=== PATIENT | male | born 1960 | race Caucasian/White ===

== ENCOUNTER 2017-03-17 15:35 | Emergency (ER) | payer BC ==
[2017-03-17 15:42] VITALS: BMI 26.6
[2017-03-17] MEDS ORDERED: ZOFRAN INJ 4 MG VIAL IM ONE (16:12)
--- NOTE | 2017-03-17 16:13 | DR.GENAD ---
HPI - PCP Primary Care Physician: JOE - HPI Comment HPI Comment: WAS AT GI OFFICE WHEN HE STARTED SWEATING AND SHAKING AND HAD NEAR SYNCOPAL FEELING. HE WAD HAVING ABDOMINA DISCOMFORT WITH NAUSEA. HE HAD GASTRIC SLEEVE SURGERY FEW YEARS ADO. HE IS EATING POORLY. WHEN TRY TO EAT, IT COME BACK. THIS IS UPSETTING. HE IS WEAK AND CONSTANTLY DRAIN OF ENERGY. SYMTOMS SPONTANEOUSLY IMPROVE WHILE IN ED. - Complaint/Symptoms Chief Complaint Doctors Comments: ABDOMINAL PAIN WITH NAUSEA, NEAR SYNCPAL EPISODE. Chief Complaint:: BEEN TO IN [place], WHILE LEAVING PATIENT STARTED SWEATING REALLY BAD, SHAKING AND HE PASSED OUT. Self Treatment fo Chief Complaint: CAME STRAHT TO ER - Nurses notes reviewed Nurses Notes Review: Yes - Source History Provided: Patient, Guardian - Mode of Arrival Mode of Arrival: Wheelchair - Timing Onset of Chief Complaint: 03/17/17 Came on: Suddenly - Duration Duration: Constant Duration: Hours - Severity Severity: Moderate PMH - PMH Past Medical History: Yes Past Medical History: Hypertension Past Surgical History: Yes Surgical History: Other Past Surgical History Comment: HERNIA AND GASTRIC BYPASS IN 2014 - Family History History of Family Medical Conditions: Yes Family Medical History: Cancer, Hypertension - Social History Does any household member use tobacco: No Alcohol Use: None Do you use any recreational Drugs:: No Lives With: Alone Lives Where: Home - infectious screening In the last 2 months have you had wt loss of >10#?: NO Have you had fever, night sweats or hemotysis?: No Have you traveled outside the country in the last 6 months?: No Isolation: Standard ROS - Review of Systems Constitutional: No Symptoms Reported Eyes: No Symptoms Reported ENTM: No Symptoms Reported Respiratoy: No Symptoms Reported Cardiovascular: No Symptoms Reported Gastrointestinal/Abdominal: Abdominal Pain, Nausea Genitourinary: No Symptoms Reported. negative: Dysuria, Frequency, Hematuria Neurological: Dizziness Musculoskeletal: Muscle Pain Integumentary: No Symptoms Reported Hematologic/Lymphatic: No Symptoms Reported Endocrine: No Symptoms Reported All Other Systems: Reviewed and Negative PE - Vital Signs Vitals: Temperature 97.7 F Pulse Rate [Left Brachial] 78 Pulse Rate 80 Respiratory Rate 16 Blood Pressure [Left Arm] 160/101 Blood Pressure 180/111 O2 Sat by Pulse Oximetry 100 - General Limitations: No Limitations General Appearance: Alert - Head Head Exam: Normal Inspection - Eyes Eye exam: Normal Appearance - ENT ENT Exam: Normal External Ear Exam TM/Canal Exam: Bilateral Normal Nose Exam: Normal Nose Exam Mouth Exam: Normal Inspection Throat Exam: Normal Inspection - Neck Neck Exam: Normal Inspection - Chest Chest Inspection: Symmetric Chest Wall Rise - Respiratory Respiratory Exam: Normal Lung Sounds Bilat Respiratory Exam: Bilateral Clear to Auscultation - Cardiovascular Cardiovascular Exam: Regular Rate, Normal Rhythm, Normal Heart Sounds - Abdominal Exam Abdominal Exam: Normal Bowel Sounds, Soft, Tenderness Abdominal Tenderness: RUQ, LUQ, Epigastrium - Extremities Extremities Exam: Normal Inspection - Back Back Exam: Normal Inspection - Neurologic Neurological Exam: Alert, Oriented X3 - Psychiatric Psychiatric Exam: Anxious - Skin Skin Exam: Normal Color MDM - Additional Information Additional Information Obtained From: Family - Differential Diagnosis Differential Diagnosis: ABDOMINAL PAIN, KISNEY STONES, UTI, BOWEL OBSTRUCTION, DIZZINESS Course - Treatment Treatment: SEE ORDERS. - Education/Counseling Education/Counseling: Patient, Family, Education Educated On: Diagnosis, Needs for Follow Up ROR - Labs Reviewed Laboratory Results Reviewed?: Yes Result Diagrams: 03/17/17 16:54 03/17/17 16:54 Laboratory: WBC 8.0 X10^3/uL (3.6-10.0) 03/17/17 16:54 RBC 5.19 X10^6/uL (4.7-6.0) 03/17/17 16:54 Hgb 16.5 g/dL (13.5-18.0) 03/17/17 16:54 Hct 48.5 % (42.0-54.0) 03/17/17 16:54 MCV 93.4 fL (80.0-100.0) 03/17/17 16:54 MCH 31.7 pg (27.0-34.0) 03/17/17 16:54 MCHC 33.9 g/dL (33.0-35.0) 03/17/17 16:54 RDW 13.4 % (11.6-16.5) 03/17/17 16:54 Plt Count 221 X10^3/uL (150.0-450.0) 03/17/17 16:54 MPV 7.7 fL (7.4-11.0) 03/17/17 16:54 Neut % 64.4 % (42.0-75.0) 03/17/17 16:54 Lymph % 23.5 % (21.0-51.0) 03/17/17 16:54 Swain % 9.1 % (0.0-13.0) 03/17/17 16:54 Eos % 2.0 % (0.9-2.9) 03/17/17 16:54 Baso % 1.0 % (0.2-1.0) 03/17/17 16:54 Neut # 5.2 x10^3/uL (2.2-4.8) H 03/17/17 16:54 Lymph # 1.9 X10^3/uL (1.3-2.9) 03/17/17 16:54 Swain # 0.7 x10^3/uL (0.3-0.8) 03/17/17 16:54 Eos # 0.2 x10^3/uL (0.0-0.2) 03/17/17 16:54 Baso # 0.1 X10^3/uL (0.0-0.1) 03/17/17 16:54 Absolute Nucleated RBC 0.0 /100WBC 03/17/17 16:54 Sodium 141 mmol/L (136-145) 03/17/17 16:54 Corrected Sodium TNP 03/17/17 16:54 Potassium 3.7 mmol/L (3.5-5.1) 03/17/17 16:54 Chloride 106 mmol/L (98-107) 03/17/17 16:54 Carbon Dioxide 31.5 mmol/L (21-32) 03/17/17 16:54 BUN 9 mg/dL (7-18) 03/17/17 16:54 Creatinine 1.00 mg/dL (0.70-1.30) 03/17/17 16:54 Est GFR (MDRD) Af Amer > 60 (>60) 03/17/17 16:54 Est GFR (MDRD) Non-Af > 60 (>60) 03/17/17 16:54 Glucose 85 mg/dL (65-99) 03/17/17 16:54 Calcium 8.6 mg/dL (8.5-10.1) 03/17/17 16:54 Corrected Calcium 9.2 mg/dL (8.5-10.1) 03/17/17 16:54 Total Bilirubin 0.20 mg/dL (0.2-1.0) 03/17/17 16:54 AST 16 Units/L (15-37) 03/17/17 16:54 ALT 25 Units/L (12-78) 03/17/17 16:54 Alkaline Phosphatase 76 Units/L (46-116) 03/17/17 16:54 Total Protein 6.8 g/dL (6.4-8.2) 03/17/17 16:54 Albumin 3.2 g/dL (3.4-5.0) L 03/17/17 16:54 Globulin 3.6 g/dL (2.5-4.5) 03/17/17 16:54 Albumin/Globulin Ratio 0.9 Ratio (1.1-2.1) L 03/17/17 16:54 Amylase 64 Units/L (25-115) 03/17/17 16:54 Lipase 101 Units/L (73-393) 03/17/17 16:54 - XRAY XRAY Interpreted by: Radiologist XRAY Findings: REPORT DISCUSS WITH PATIENT AND HIS FAMILY. - Diagnosis Discharge Problem: Dizziness Vomiting Qualifiers: Vomiting type: bilious vomiting Nausea presence: with nausea Qualified Code(s) : R11.14 - Bilious vomiting - Discharge Plan Disposition: 01 HOME, SELF-CARE Condition: Stable Prescriptions: Ondansetron HCl [Zofran Tab 4 mg] 4 mg PO Q8H PRN #12 tab PRN Reason: Nausea/Vomiting - Follow ups/Referrals Follow ups/Referrals: Alfred Jules [Primary Care Provider] - 3 days - Instructions Instructions: Nausea and Vomiting, Adult, [id number], Headache and Arthritis Additional Instructions: RETURN TO ED IF WORSE.
[2017-03-17 17:09] LABS: BASOPHILS # (AUTO) 0.1 X10^3/uL (0.0-0.1); EOSINOPHILS # (AUTO) 0.2 x10^3/uL (0.0-0.2); HEMATOCRIT 48.5 % (42.0-54.0); HEMOGLOBIN 16.5 g/dL (13.5-18.0); LYMPHOCYTES # (AUTO) 1.9 X10^3/uL (1.3-2.9); LYMPHOCYTES % (AUTO) 23.5 % (21.0-51.0); MEAN CORPUSCULAR HEMOGLOBIN 31.7 pg (27.0-34.0); MEAN CORPUSCULAR HGB CONC 33.9 g/dL (33.0-35.0); MEAN CORPUSCULAR VOLUME 93.4 fL (80.0-100.0); MEAN PLATELET VOLUME 7.7 fL (7.4-11.0); MONOCYTES # (AUTO) 0.7 x10^3/uL (0.3-0.8); MONOCYTES % (AUTO) 9.1 % (0.0-13.0); NEUTROPHILS # (AUTO) 5.2 x10^3/uL (2.2-4.8); NEUTROPHILS % (AUTO) 64.4 % (42.0-75.0); PLATELET COUNT 221 X10^3/uL (150.0-450.0); RED BLOOD COUNT 5.19 X10^6/uL (4.7-6.0); RED CELL DISTRIBUTION WIDTH 13.4 % (11.6-16.5)
[2017-03-17 17:18] LABS: ALANINE AMINOTRANSFERASE 25 Units/L (12-78); ALBUMIN 3.2 g/dL (3.4-5.0); ALKALINE PHOSPHATASE 76 Units/L (46-116); AMYLASE 64 Units/L (25-115); ASPARTATE AMINO TRANSFERASE 16 Units/L (15-37); BLOOD UREA NITROGEN 9 mg/dL (7-18); CALCIUM 8.6 mg/dL (8.5-10.1); CARBON DIOXIDE 31.5 mmol/L (21-32); CHLORIDE 106 mmol/L (98-107); COR CA(FOR HYPOALB) 9.2 mg/dL (8.5-10.1); LIPASE 101 Units/L (73-393); SODIUM 141 mmol/L (136-145); TOTAL PROTEIN 6.8 g/dL (6.4-8.2); eGFR BLACK RACES > 60 (>60); eGFR NON BLACK RACES > 60 (>60)
[2017-03-17] MEDS ORDERED: ZOFRAN INJ 4 MG VIAL ONE (18:28)
[2017-03-17 18:35] VITALS: BP 160/101
--- NOTE | 2017-03-17 19:33 | CT ---
CT HEAD WITHOUT CONTRAST CLINICAL HISTORY: 56-year-old male with headache, vomiting and nausea. COMPARISON: None. TECHNIQUE: Multiple, non-contrasted axial CT images were obtained from the skull base to the cranial vertex. Coronal and sagittal reformats were performed. FINDINGS: There are no abnormal intra- or extra-axial fluid collections, midline shift, or mass effec t. Henriquez-white differentiation is normal. Partially empty sella. Global cortical involutional changes are present that are advanced for the patient's stated age. The ventricular system is mildly enlarged but commensurate with the degree of sulcal prominence. Periventricular and supraventricular white ma tter hypodensity is present that is nonspecific in appearance, but most likely to represent microvasc ular ischemic changes. Atherosclerotic vascular calcification is present within the carotid siphons. Polypoid mucosal thickening within the maxillary sinuses, remaining imaged paranasal sinuses, mastoid air cells and tympanic cavities are clear. IMPRESSION: 1. No definite evidence of an acute intracranial process. If clinical concern persists, consider MRI/ MRA brain. 2. Moderate microvascular white matter ischemic changes, with associated volume loss. 3. Pattern of mucosal thickening within the maxillary sinuses as described, correlate for sinusitis. Reported By:
--- NOTE | 2017-03-17 19:37 | RAD ---
ACUTE ABDOMINAL SERIES CLINICAL HISTORY: 56-year-old male with vomiting. COMPARISON: None. FINDINGS: PA chest radiograph demonstrates normal cardiopericardial silhouette. There is no focal consolidation , pleural effusion or pneumothorax. Pulmonary vascularity is normal. Abdominal radiographs demonstrate a nonobstructive bowel gas pattern. Gas and stool are seen througho ut the colon. There is no small bowel distention. There is no radiographic evidence of pneumoperitone um. Imaged osseous structures are intact. Soft tissues are unremarkable. IMPRESSION: 1. No acute cardiopulmonary process. 2. Nonobstructive bowel gas pattern without radiographic evidence of pneumoperitoneum. Reported By:
== END 2017-03-17 18:40 | disposition home or self-care (01) ==
LOC: ER 15:54
DX: R42 Dizziness and giddiness (principal); R11.14 Bilious vomiting
CPT/HCPCS: 36415; 70450; 74022; 80053; 82150; 83690; 85025; 96372; 99282; 99283; J2405

== ENCOUNTER 2017-04-02 12:04 | Day surgery (SDC) | payer BC ==
[2017-04-02] MEDS ORDERED: D5 LR 1000 ML 1,000 ML IV ONE (12:14)
[2017-04-02] MEDS ORDERED: DIPRIVAN VIAL 20 ML ONE (12:33)
[2017-04-02 13:17] VITALS: BP 134/86
== END 2017-04-02 13:15 | disposition home or self-care (01) ==
LOC: SURG1 12:04
PROVIDERS: ATTEND Internal Medicine Gastroenterology
PROC: 0DB88ZX Excision of Small Intestine, Via Natural or Artificial Opening Endoscopic, Diagnostic (ICD-10-PCS; principal; 2017-04-02 16:00)
PROC: 0DJ08ZZ Inspection of Upper Intestinal Tract, Via Natural or Artificial Opening Endoscopic (ICD-10-PCS; principal; 2017-04-02 16:00)
DX: R11.2 Nausea with vomiting, unspecified (principal); R10.13 Epigastric pain; Z98.84 Bariatric surgery status; K29.60 Other gastritis without bleeding; K20.8 Other esophagitis
CPT/HCPCS: A4217; J3490; J7120

== ENCOUNTER 2024-07-19 10:32 | Observation (INO) ==
--- NOTE | 2024-07-19 10:37 | EKG ---
Test Reason : high blood pressure Blood Pressure : */* mmHG Vent. Rate : 75 BPM Atrial Rate : 75 BPM P-R Int : 148 ms QRS Dur : 84 ms QT Int : 436 ms P-R-T Axes : 55 14 39 degrees QTc Int : 486 ms Normal sinus rhythm Prolonged QT Abnormal ECG No previous ECGs available Confirmed by Riley Sheikh MD ([id number]) on 07/19/2024 2:49:39 PM Referred By: Confirmed By: Riley Sheikh MD
[2024-07-19] MEDS: CATAPRES TAB 0.2 MG PO ONE (11:08)
[2024-07-19 11:16] LABS: INR 1.06 (0.8-1.3)
[2024-07-19 11:18] LABS: HEMOGLOBIN 14.4 g/dL (13.5-18.0); MEAN CORPUSCULAR HEMOGLOBIN 30.5 pg (27.0-34.0); MEAN CORPUSCULAR VOLUME 90.9 fL (80.0-100.0); WHITE BLOOD COUNT 8.6 X10^3/uL (3.6-10.0)
[2024-07-19 11:21] LABS: BASOPHILS % (AUTO) 0.6 % (0.2-1.0); EOSINOPHILS # (AUTO) 0.5 x10^3/uL (0.0-0.2); EOSINOPHILS % (AUTO) 5.3 % (0.9-2.9); HEMATOCRIT 42.9 % (42.0-54.0); LYMPHOCYTES # (AUTO) 1.5 X10^3/uL (1.3-2.9); LYMPHOCYTES % (AUTO) 17.3 % (21.0-51.0); MEAN CORPUSCULAR HGB CONC 33.6 g/dL (33.0-35.0); MEAN PLATELET VOLUME 7.7 fL (7.4-11.0); MONOCYTES # (AUTO) 0.9 x10^3/uL (0.3-0.8); MONOCYTES % (AUTO) 9.9 % (0.0-13.0); NEUTROPHILS # (AUTO) 5.8 x10^3/uL (2.2-4.8); NEUTROPHILS % (AUTO) 66.9 % (42.0-75.0); PLATELET COUNT 237 X10^3/uL (150.0-450.0); RED BLOOD COUNT 4.72 X10^6/uL (4.7-6.0); RED CELL DISTRIBUTION WIDTH 14.8 % (11.6-16.5)
[2024-07-19 11:27] LABS: ALANINE AMINOTRANSFERASE 28 Units/L (12-78); ALBUMIN 3.2 g/dL (3.4-5.0); ALKALINE PHOSPHATASE 90 Units/L (46-116); ASPARTATE AMINO TRANSFERASE 25 Units/L (15-37); BLOOD UREA NITROGEN 26 mg/dL (7-18); CALCIUM 8.6 mg/dL (8.5-10.1); CARBON DIOXIDE 30.6 mmol/L (21-32); CHLORIDE 106 mmol/L (98-107); COR CA(FOR HYPOALB) 9.2 mg/dL (8.5-10.1); CREATININE 1.19 mg/dL (0.70-1.30); GLUCOSE 89 mg/dL (65-99); MAGNESIUM 1.9 mg/dL (2.0-2.9); POTASSIUM 3.4 mmol/L (3.5-5.1); SODIUM 141 mmol/L (136-145); TOTAL PROTEIN 6.9 g/dL (6.4-8.2); eGFR NON BLACK RACES > 60 (>60)
--- NOTE | 2024-07-19 11:46 | RAD ---
EXAM:CHEST, 1 VIEWHISTORY:cough; GASTRIC SLEEVE, HERNIACOMPARISON:None.TECHNIQUE:Chest radiograph single frontal viewFINDINGS:Low lung volumes are demonstrated with streaky subsegmental bibasilar airspace opacities. Upper lung zones are clear. Heart size is average accounting for portable technique and inspiratory effort. There are no conspicuous pleural fluid collections identified by portable technique. No pneumothorax or acute osseous abnormalities of the chest. Paraspinal fusion hardware is demonstrated within the upper lumbar spine. The bone mineral density is generally diminished. Fullness of the right paratracheal soft tissue stripe likely due to superimposition of vascular structures.Small hiatal hernia is questioned.There is transposition of the colon below the right diaphragm.IMPRESSION:Low lung volumes with streaky subsegmental bibasilar opacities favoring atelectasis. Early pneumonia may be excluded on a clinical basis.Small hiatal hernia suspectedTHIS IS AN ELECTRONICALLY VERIFIED FINAL REPORT07/19/2024 11:43 AM - Electronically signed by Kwame Starkey MD
[2024-07-19] MEDS: CATAPRES TAB 0.1 MG PO ONE (11:52)
--- NOTE | 2024-07-19 12:13 | DR.HTN ---
HPI Time Seen Time Seen by Provider: 07/19/24 10:35 Primary Care Physician Primary Care Physician: NABIL Pires Complaints Chief Complaint Doctors Comments: 64 yo M, hx of HTN, non-compliant with BP meds, was at doctor's office for routine visit, was sent here for HTN, 238/160 in office. Pt admits to cough and dyspnea for ~1 mo. Also admits to a couple episodes of emesis in the past couple days. Denies other complaints. 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 (238/160) Hx of HTN but not compliant. 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 Patient poor historian and states he really don't know why he is here, but they said his BP was high. He c/o cough and dyspnea x 1 month COVID-19 Coronavirus risk:travel/contact w/high risk person: No Has patient experienced Coronavirus symptoms: No Source History Provided: Patient Mode of Arrival Mode of Arrival: Wheelchair Timing Onset of Chief Complaint: 07/19/24 PMH PMH Past Medical History: Yes Past Medical History: Hypertension Past Surgical History: Yes Surgical History: Ortho Surgery Past Surgical History Comment: gastric bypass Family History History of Family Medical Conditions: Yes Family Medical History: Cancer and Hypertension Social History Does patient currently use any type of tobacco product: Yes Have you used tobacco products in the last 12 months: Yes Type of Tobacco Use: Cigarettes Does any household member use tobacco: Yes Alcohol Use: None Do you use any recreational Drugs:: No Lives With: Alone Lives Where: Home Travel Risk Coronavirus risk:travel/contact w/high risk person: No Has patient experienced Coronavirus symptoms: No Infectious screening In the last 2 months have you had wt loss of >10#?: NO Have you had fever, night sweats or hemotysis?: No Have you traveled outside the country in the last 6 months?: No Isolation: Standard ROS Review of Systems Respiratoy: Productive Cough and Short of Breath Cardiovascular: negative Chest Pain or Palpitations All Other Systems: Reviewed and Negative PE Vital Signs Vitals: Vital Signs Temperature 98.2 F Pulse Rate 72 Respiratory Rate 16 Blood Pressure 184/103 O2 Sat by Pulse Oximetry 97 General Limitations: No Limitations General Appearance: Alert and In No Apparent Distress Head Head Exam: Normal Inspection Eyes Eye exam: Normal Appearance ENT ENT Exam: Normal Exam Neck Neck Exam: Normal Inspection Chest Chest Inspection: Normal Inspection Respiratory Respiratory Exam: Normal Lung Sounds Bilat Respiratory Exam: Bilateral: Clear to Auscultation Cardiovascular Cardiovascular Exam: Regular Rate and Normal Rhythm Abdominal Exam Abdominal Exam: Normal Inspection, Normal Bowel Sounds and Soft Extremities Extremities Exam: Normal Inspection Back Back Exam: Normal Inspection Neurologic Neurological Exam: Alert and Oriented X3 Psychiatric Psychiatric Exam: Normal Affect and Normal Mood Skin Skin Exam: Warm, Dry, Intact and Normal Color ROR Labs Reviewed 07/19/24 11:00 07/19/24 11:00 Laboratory: WBC 8.6 X10^3/uL (3.6-10.0) 07/19/24 11:00 RBC 4.72 X10^6/uL (4.7-6.0) 07/19/24 11:00 Hgb 14.4 g/dL (13.5-18.0) 07/19/24 11:00 Hct 42.9 % (42.0-54.0) 07/19/24 11:00 MCV 90.9 fL (80.0-100.0) 07/19/24 11:00 MCH 30.5 pg (27.0-34.0) 07/19/24 11:00 MCHC 33.6 g/dL (33.0-35.0) 07/19/24 11:00 RDW 14.8 % (11.6-16.5) 07/19/24 11:00 Plt Count 237 X10^3/uL (150.0-450.0) 07/19/24 11:00 MPV 7.7 fL (7.4-11.0) 07/19/24 11:00 Neut % (Auto) 66.9 % (42.0-75.0) 07/19/24 11:00 Lymph % (Auto) 17.3 % (21.0-51.0) L 07/19/24 11:00 Bertie % (Auto) 9.9 % (0.0-13.0) 07/19/24 11:00 Eos % (Auto) 5.3 % (0.9-2.9) H 07/19/24 11:00 Baso % (Auto) 0.6 % (0.2-1.0) 07/19/24 11:00 Neut # (Auto) 5.8 x10^3/uL (2.2-4.8) H 07/19/24 11:00 Lymph # (Auto) 1.5 X10^3/uL (1.3-2.9) 07/19/24 11:00 Bertie # (Auto) 0.9 x10^3/uL (0.3-0.8) H 07/19/24 11:00 Eos # (Auto) 0.5 x10^3/uL (0.0-0.2) H 07/19/24 11:00 Baso # (Auto) 0.0 X10^3/uL (0.0-0.1) 07/19/24 11:00 Absolute Nucleated RBC 0.1 /100WBC 07/19/24 11:00 PT 13.6 SECONDS (11.8-14.3) 07/19/24 11:00 INR Target Range - 07/19/24 11:00 INR 1.06 (0.8-1.3) 07/19/24 11:00 APTT 28.4 SECONDS (22.9-36.5) 07/19/24 11:00 PTT Comment - 07/19/24 11:00 Sodium 141 mmol/L (136-145) 07/19/24 11:00 Corrected Sodium TNP 07/19/24 11:00 Potassium 3.4 mmol/L (3.5-5.1) L 07/19/24 11:00 Chloride 106 mmol/L (98-107) 07/19/24 11:00 Carbon Dioxide 30.6 mmol/L (21-32) 07/19/24 11:00 BUN 26 mg/dL (7-18) H 07/19/24 11:00 Creatinine 1.19 mg/dL (0.70-1.30) 07/19/24 11:00 Est GFR (MDRD) Af Amer > 60 (>60) 07/19/24 11:00 Est GFR (MDRD) Non-Af > 60 (>60) 07/19/24 11:00 Glucose 89 mg/dL (65-99) 07/19/24 11:00 Calcium 8.6 mg/dL (8.5-10.1) 07/19/24 11:00 Corrected Calcium 9.2 mg/dL (8.5-10.1) 07/19/24 11:00 Magnesium 1.9 mg/dL (2.0-2.9) L 07/19/24 11:00 Total Bilirubin 0.90 mg/dL (0.2-1.0) 07/19/24 11:00 AST 25 Units/L (15-37) 07/19/24 11:00 ALT 28 Units/L (12-78) 07/19/24 11:00 Alkaline Phosphatase 90 Units/L (46-116) 07/19/24 11:00 Troponin I High Sens 24.6 ng/L (4.0-60.0) 07/19/24 11:00 Total Protein 6.9 g/dL (6.4-8.2) 07/19/24 11:00 Albumin 3.2 g/dL (3.4-5.0) L 07/19/24 11:00 Globulin 3.7 g/dL (2.5-4.5) 07/19/24 11:00 Albumin/Globulin Ratio 0.9 Ratio (1.1-2.1) L 07/19/24 11:00 SARS-CoV-2 (PCR) Negative (NEGATIVE) 07/19/24 10:52 Influenza Type A (PCR) Negative (NEGATIVE) 07/19/24 10:52 Influenza Type B (PCR) Negative (NEGATIVE) 07/19/24 10:52 RSV (PCR) Negative (NEGATIVE) 07/19/24 10:52 Opioid Opioid Risk Tool Age (Neal box if 16-45): No History of Preadolescent Sexual Abuse: No Total: 0 Total Score Risk Category: Low Risk Copyright: Jose LARA predicting aberrant behaviors Discharge Plan Diagnosis Discharge Problem: Hypertension, Pneumonia Discharge Plan Patient Disposition: 01 HOME, SELF-CARE Condition: Stable Prescriptions: New amoxicillin-pot clavulanate 875-125 mg tablet 1 tab PO Q12H 7 Days Qty: 14 0RF amlodipine 5 mg tablet 5 mg PO QDAY Qty: 30 0RF No Action ondansetron HCl 4 MG tablet 4 mg PO Q8H PRN (Reason: Nausea/Vomiting) Qty: 12 0RF methadone 10 MG tablet 10 mg PO DAILY lisinopril 20 MG tablet 20 mg PO DAILY oxycodone 30 MG tablet 30 mg PO Q8H PRN (Reason: Severe Pain) Health Concerns: Post Hospitalization: new medications and changes needed to prevent readmission or further decline. Pt educated and given instructions on all concerns. Plan of Treatment: Continue with present treatment and follow up plan. Pt is to keep follow up appointment as instructed and take medications as ordered. Orders to Discharge Patient Discharge Orders: Discharge (Routine); Ordered 07/19/24 Ordered By: Fercho Angela Follow ups/Referrals Follow ups/Referrals: RICHARD WORKMAN [Primary Care Provider] - 3 days Instructions Instructions: Community-Acquired Pneumonia, Adult, Hypertension Stand Alone Forms: Find Help Web Site, Post Hospital Follow Up Care
[2024-07-19] MEDS: ATIVAN INJ 2 MG VIAL IVP ONE (15:00)
[2024-07-19] MEDS: NS 1,000 ML IV 1,000 ML IV SCH (16:48)
[2024-07-19] MEDS: CONSULT PHARMACY - POTASSIUM & MAGNESIUM XX SCH (16:49)
[2024-07-19] MEDS: MAG-OX TAB PO SCH (18:10)
[2024-07-19] MEDS: K-DUR TAB 20 MEQ PO SCH (18:11)
[2024-07-20 06:26] LABS: BASOPHILS # (AUTO) 0.1 X10^3/uL (0.0-0.1); BASOPHILS % (AUTO) 1.1 % (0.2-1.0); EOSINOPHILS # (AUTO) 0.5 x10^3/uL (0.0-0.2); EOSINOPHILS % (AUTO) 7.1 % (0.9-2.9); HEMATOCRIT 37.4 % (42.0-54.0); HEMOGLOBIN 12.5 g/dL (13.5-18.0); LYMPHOCYTES # (AUTO) 1.9 X10^3/uL (1.3-2.9); MEAN CORPUSCULAR HEMOGLOBIN 30.5 pg (27.0-34.0); MEAN CORPUSCULAR HGB CONC 33.3 g/dL (33.0-35.0); MEAN CORPUSCULAR VOLUME 91.6 fL (80.0-100.0); MEAN PLATELET VOLUME 7.9 fL (7.4-11.0); MONOCYTES # (AUTO) 0.8 x10^3/uL (0.3-0.8); MONOCYTES % (AUTO) 11.9 % (0.0-13.0); NEUTROPHILS # (AUTO) 3.3 x10^3/uL (2.2-4.8); NEUTROPHILS % (AUTO) 50.9 % (42.0-75.0); PLATELET COUNT 206 X10^3/uL (150.0-450.0); RED BLOOD COUNT 4.09 X10^6/uL (4.7-6.0); RED CELL DISTRIBUTION WIDTH 14.6 % (11.6-16.5); WHITE BLOOD COUNT 6.6 X10^3/uL (3.6-10.0)
[2024-07-20 06:46] LABS: ALANINE AMINOTRANSFERASE 20 Units/L (12-78); ALBUMIN 2.5 g/dL (3.4-5.0); ALKALINE PHOSPHATASE 76 Units/L (46-116); ASPARTATE AMINO TRANSFERASE 23 Units/L (15-37); BLOOD UREA NITROGEN 20 mg/dL (7-18); CALCIUM 8.2 mg/dL (8.5-10.1); CARBON DIOXIDE 26.6 mmol/L (21-32); CHLORIDE 109 mmol/L (98-107); COR CA(FOR HYPOALB) 9.4 mg/dL (8.5-10.1); CREATININE 0.94 mg/dL (0.70-1.30); GLUCOSE 75 mg/dL (65-99); POTASSIUM 3.7 mmol/L (3.5-5.1); SODIUM 141 mmol/L (136-145); TOTAL PROTEIN 5.6 g/dL (6.4-8.2); eGFR NON BLACK RACES > 60 (>60)
[2024-07-20] MEDS ORDERED: CONSULT PHARMACY - POTASSIUM & MAGNESIUM XX SCH (07:00)
[2024-07-20] MEDS: K-DUR TAB 20 MEQ PO SCH (09:19)
[2024-07-20] MEDS: ZESTRIL TAB 10 MG PO SCH (10:41)
[2024-07-20] MEDS: NORVASC TAB 5 MG PO SCH (10:41)
[2024-07-20] MEDS: NICOTINE PATCH TD SCH (10:42)
[2024-07-20] MEDS: LOVENOX INJ 40 MG SYR SC SCH (10:42)
[2024-07-20 14:37] VITALS: BMI 40.5
[2024-07-20] MEDS ORDERED: ULTRAM PO PRN (19:28)
[2024-07-20] MEDS: NORCO 5/325 MG TAB PO PRN (20:44)
[2024-07-21] MEDS: CATAPRES TAB 0.1 MG PO ONE (00:43)
[2024-07-21] MEDS: APRESOLINE INJ 20 MG VIAL IVP ONE (02:05)
[2024-07-21] MEDS: MORPHINE SULFATE INJ 2 MG INJ IVP PRN (03:28)
[2024-07-21 05:51] LABS: BASOPHILS # (AUTO) 0.1 X10^3/uL (0.0-0.1); BASOPHILS % (AUTO) 1.2 % (0.2-1.0); EOSINOPHILS # (AUTO) 0.5 x10^3/uL (0.0-0.2); EOSINOPHILS % (AUTO) 7.5 % (0.9-2.9); HEMATOCRIT 38.9 % (42.0-54.0); HEMOGLOBIN 12.9 g/dL (13.5-18.0); LYMPHOCYTES # (AUTO) 2.3 X10^3/uL (1.3-2.9); LYMPHOCYTES % (AUTO) 36.4 % (21.0-51.0); MEAN CORPUSCULAR HEMOGLOBIN 30.3 pg (27.0-34.0); MEAN CORPUSCULAR HGB CONC 33.2 g/dL (33.0-35.0); MEAN CORPUSCULAR VOLUME 91.2 fL (80.0-100.0); MEAN PLATELET VOLUME 7.5 fL (7.4-11.0); MONOCYTES # (AUTO) 0.6 x10^3/uL (0.3-0.8); MONOCYTES % (AUTO) 9.2 % (0.0-13.0); NEUTROPHILS # (AUTO) 2.9 x10^3/uL (2.2-4.8); NEUTROPHILS % (AUTO) 45.7 % (42.0-75.0); PLATELET COUNT 226 X10^3/uL (150.0-450.0); RED BLOOD COUNT 4.27 X10^6/uL (4.7-6.0); RED CELL DISTRIBUTION WIDTH 14.6 % (11.6-16.5); WHITE BLOOD COUNT 6.3 X10^3/uL (3.6-10.0)
[2024-07-21 06:03] LABS: PLATELET MORPHOLOGY COMMENT NORMAL (NORMAL)
[2024-07-21 06:04] LABS: ALANINE AMINOTRANSFERASE 26 Units/L (12-78); ALBUMIN 2.6 g/dL (3.4-5.0); ALKALINE PHOSPHATASE 80 Units/L (46-116); ASPARTATE AMINO TRANSFERASE 24 Units/L (15-37); BLOOD UREA NITROGEN 15 mg/dL (7-18); CALCIUM 8.3 mg/dL (8.5-10.1); CARBON DIOXIDE 26.9 mmol/L (21-32); CHLORIDE 107 mmol/L (98-107); COR CA(FOR HYPOALB) 9.4 mg/dL (8.5-10.1); CREATININE 0.79 mg/dL (0.70-1.30); GLUCOSE 76 mg/dL (65-99); MAGNESIUM 1.8 mg/dL (2.0-2.9); POTASSIUM 3.9 mmol/L (3.5-5.1); SODIUM 139 mmol/L (136-145); TOTAL PROTEIN 5.9 g/dL (6.4-8.2); eGFR NON BLACK RACES > 60 (>60)
[2024-07-21 07:58] VITALS: PULSE 95; RESP 20
[2024-07-21 12:06] VITALS: TEMP 98; O2SAT 98
[2024-07-21 12:07] VITALS: BP 160/98
--- NOTE | 2024-07-21 13:12 | NOTE.SOAP ---
Soap Note Note for Day of Date of Exam: 07/21/24 Subjective Data Subjective Data: Patient currently eaten breakfast. Nurses deny interval events. Seen for daily rounds with nurse at bedside. Still plans for long-term care placement. He is without new complaint today. Objective Data Objective Data: Obese male in no acute distress. Hearing intact conversation. Heart regular rate and rhythm. Lungs diminished but clear. Bowel sounds present. Focused on his breakfast. Assessment Assessment: 1. Adult failure to thrive. Patient unable to care for himself at home. We are planning a long-term care placement. 2. Hypertension. Initially doing much better but elevated the last few readings today. Double lisinopril and amlodipine.
[2024-07-21] MEDS: ZESTRIL TAB 10 MG PO SCH (13:54)
[2024-07-21] MEDS: NORVASC TAB 5 MG PO SCH (13:55)
--- NOTE | 2024-07-26 10:20 | PCM.DCPLAN ---
DISCHARGE SUMMARY Admission Date Date of Admission: 07/19/24 Discharge Date Discharge Date: 07/22/24 Admission Diagnoses (1) Hypertensive urgency: Status: Acute Discharge Diagnoses Discharge Diagnosis: Hypertensive urgency, morbid obesity, chronic pain, adult failure to thrive due to inability to care for self,, functional paraplegia. Discharge Medications Discharge Medications: Home Medication List amlodipine 5 mg tablet 5 mg PO QDAY #30 tabs 07/19/24 [Rx] amoxicillin 875 mg-potassium clavulanate 125 mg tablet 1 tab PO Q12H 7 days #14 tabs 07/19/24 [Rx] Prescriptions: amlodipine Julio César,Fercho amoxicillin-pot clavulanate Julio César,Fercho Hospital Course Latest Lab Results: Laboratory Last Values WBC 6.3 X10^3/uL (3.6-10.0) 07/21/24 05:42 RBC 4.27 X10^6/uL (4.7-6.0) L 07/21/24 05:42 Hgb 12.9 g/dL (13.5-18.0) L 07/21/24 05:42 Hct 38.9 % (42.0-54.0) L 07/21/24 05:42 MCV 91.2 fL (80.0-100.0) 07/21/24 05:42 MCH 30.3 pg (27.0-34.0) 07/21/24 05:42 MCHC 33.2 g/dL (33.0-35.0) 07/21/24 05:42 RDW 14.6 % (11.6-16.5) 07/21/24 05:42 Plt Count 226 X10^3/uL (150.0-450.0) 07/21/24 05:42 Plt Count Comment Adequate (ADEQUATE) 07/21/24 05:42 MPV 7.5 fL (7.4-11.0) 07/21/24 05:42 Neut % (Auto) 45.7 % (42.0-75.0) 07/21/24 05:42 Lymph % (Auto) 36.4 % (21.0-51.0) 07/21/24 05:42 Guadalupe % (Auto) 9.2 % (0.0-13.0) 07/21/24 05:42 Eos % (Auto) 7.5 % (0.9-2.9) H 07/21/24 05:42 Baso % (Auto) 1.2 % (0.2-1.0) H 07/21/24 05:42 Neut # (Auto) 2.9 x10^3/uL (2.2-4.8) 07/21/24 05:42 Lymph # (Auto) 2.3 X10^3/uL (1.3-2.9) 07/21/24 05:42 Guadalupe # (Auto) 0.6 x10^3/uL (0.3-0.8) 07/21/24 05:42 Eos # (Auto) 0.5 x10^3/uL (0.0-0.2) H 07/21/24 05:42 Baso # (Auto) 0.1 X10^3/uL (0.0-0.1) 07/21/24 05:42 Absolute Nucleated RBC 0.0 /100WBC 07/21/24 05:42 Total Counted 100 07/21/24 05:42 Neutrophils % (Manual) 50 % (39-76) 07/21/24 05:42 Lymphocytes % (Manual) 39 % (13-43) 07/21/24 05:42 Monocytes % (Manual) 4 % (4-9) 07/21/24 05:42 Eosinophils % (Manual) 7 % (0-6) H 07/21/24 05:42 Plt Morphology Comment Normal (NORMAL) 07/21/24 05:42 RBC Morphology Normal (NORMAL) 07/21/24 05:42 PT 13.6 SECONDS (11.8-14.3) 07/19/24 11:00 INR Target Range - 07/19/24 11:00 INR 1.06 (0.8-1.3) 07/19/24 11:00 APTT 28.4 SECONDS (22.9-36.5) 07/19/24 11:00 PTT Comment - 07/19/24 11:00 Sodium 139 mmol/L (136-145) 07/21/24 05:42 Corrected Sodium TNP 07/21/24 05:42 Potassium 3.9 mmol/L (3.5-5.1) 07/21/24 05:42 Chloride 107 mmol/L (98-107) 07/21/24 05:42 Carbon Dioxide 26.9 mmol/L (21-32) 07/21/24 05:42 BUN 15 mg/dL (7-18) 07/21/24 05:42 Creatinine 0.79 mg/dL (0.70-1.30) 07/21/24 05:42 Est GFR (MDRD) Af Amer > 60 (>60) 07/21/24 05:42 Est GFR (MDRD) Non-Af > 60 (>60) 07/21/24 05:42 Glucose 76 mg/dL (65-99) 07/21/24 05:42 POC Glucose (mg/dL) 92 mg/dL (65-99) 07/19/24 20:38 Calcium 8.3 mg/dL (8.5-10.1) L 07/21/24 05:42 Corrected Calcium 9.4 mg/dL (8.5-10.1) 07/21/24 05:42 Magnesium 1.8 mg/dL (2.0-2.9) L 07/21/24 05:42 Total Bilirubin 0.40 mg/dL (0.2-1.0) 07/21/24 05:42 AST 24 Units/L (15-37) 07/21/24 05:42 ALT 26 Units/L (12-78) 07/21/24 05:42 Alkaline Phosphatase 80 Units/L (46-116) 07/21/24 05:42 Troponin I High Sens 21.5 ng/L (4.0-60.0) 07/19/24 23:30 Total Protein 5.9 g/dL (6.4-8.2) L 07/21/24 05:42 Albumin 2.6 g/dL (3.4-5.0) L 07/21/24 05:42 Globulin 3.3 g/dL (2.5-4.5) 07/21/24 05:42 Albumin/Globulin Ratio 0.8 Ratio (1.1-2.1) L 07/21/24 05:42 SARS-CoV-2 (PCR) Negative (NEGATIVE) 07/19/24 10:52 Influenza Type A (PCR) Negative (NEGATIVE) 07/19/24 10:52 Influenza Type B (PCR) Negative (NEGATIVE) 07/19/24 10:52 RSV (PCR) Negative (NEGATIVE) 07/19/24 10:52 Hospital Course: Patient was directly admitted from PCPs office to be [facility] due to hypertensive urgency. Plan was also in place to transition patient to long-term care as he felt he was unable to care for himself at home. He slowly responded to blood pressure lowering therapies and was able to discharge safely to [facility] and rehab for long-term care.
== END 2024-07-21 14:30 ==
LOC: ER 10:32 → MED/SURG 14:05 → INTOOBSV 14:05 → MED/SURG 15:50
PROVIDERS: ADMIT Obstetrics & Gynecology Obstetrics; ATTEND Obstetrics & Gynecology Obstetrics
DX: I10 Essential (primary) hypertension; R06.09 Other forms of dyspnea; R05.2 Subacute cough; Z03.818 Encounter for observation for suspected exposure to other biological agents ruled out; E83.42 Hypomagnesemia; R26.81 Unsteadiness on feet; R94.31 Abnormal electrocardiogram [ECG] [EKG]; E87.6 Hypokalemia; I16.9 Hypertensive crisis, unspecified; K44.9 Diaphragmatic hernia without obstruction or gangrene; R06.02 Shortness of breath; R51.9 Headache, unspecified; Z72.0 Tobacco use; Z59.86 Financial insecurity